=== PATIENT | female | born 1995 | race Caucasian/White ===

== ENCOUNTER 2018-06-03 14:36 | Inpatient (IN) | payer BC ==
[2018-06-03] MEDS ORDERED: Sodium Chloride 0.9% 10 ML Syringe FLUSH PRN (15:30)
[2018-06-03] MEDS ORDERED: Ondansetron 4 MG/2 ML SDV IVPUSH PRN (15:30)
[2018-06-03] MEDS ORDERED: Lactated Ringers 1,000 ML IV SCH (15:30)
[2018-06-03] MEDS ORDERED: Oxytocin/Lactated Ringers 10 UNIT/1,000 ML BAG IV SCH ×2 (15:30)
[2018-06-03] MEDS ORDERED: Lidocaine 1% 50 ML MDV INJECT ONE (15:30)
[2018-06-03] MEDS ORDERED: Nalbuphine 20 MG/ML 1 ML Syringe IVPUSH PRN (15:30)
--- NOTE | 2018-06-03 17:43 | PCM.HP ---
Addendum entered and electronically signed by Waldemar Thomas MD 06/06/18 05: 11: Addendum entered and electronically signed by Steffanie Puga 06/03/18 18:01 : Vancomycin used for GBS positive status due to anaphylactic-type allergy to penicillins and sulfa drugs. Original Note: H&P History of Present Illness - General Date of Service: 06/03/18 Admit Problem/Dx: Admission Diagnosis/Problem Admission Diagnosis/Problem Source of Information: Patient, Old Records History Limitations: Reports: No Limitations - History of Present Illness Initial Comments - Free Text/Narative: Brielle is a 22 YO white female who presented to L+D today following spontaneous rupture of membranes at 39-1/7 weeks gestational age (by LMP and confirmed by U/S 04/16/18). On presentation, patient complained of fluid leakage, and on exam patient was found to be dilated 4 cm, 85% effaced and at -3 station with cervix mid-position and soft. Patient is GBS positive, AB+ blood type, antibody screen negative. Patient is rubella immune, RPR/HBsAg were nonreactive. GC/Chlamydia negative. Tdap given 04/16/18. complicated due to late care. Patient states LMP was 09/02/17 , endorses alcohol use (1-2 drinks/week) until positive test, approx. 03/30/18, at an estimated 30 weeks gestation. Patient denies use of other drugs or tobacco during . - Related Data Allergies/Adverse Reactions: Allergies Allergy/AdvReac Type Severity Reaction Status Date / Time amoxicillin Allergy Anaphylactic Verified 06/03/18 15:28 Shock Penicillins Allergy Anaphylactic Verified 06/03/18 15:21 Shock Sulfa (Sulfonamide Allergy Rash Verified 06/03/18 15:21 Antibiotics) Home Medications: Home Meds Pnv No.122/Iron/Folic Acid [ Multi Tablet] 1 each PO DAILY 06/03/18 [ History] Past Medical History - Past Surgical History HEENT Surgical History: Reports: Tonsillectomy Social & Family History - Family History Cardiac: Reports: Hypertension (MGM MGF PGM PGF) Endocrine/Metabolic: Reports: Diabetes, type II (PGM MGF) - Alcohol Use Alcohol Use History: Yes Days Per Week of Alcohol Use: 1 Days Per Week of Alcohol Use Comment: "1-2 drinks per week until positive test, approximately mid- weeks gestation" per pt. record 04/16/18 Number of Drinks Per Day Comment: 2 Date of Last Drink: 03/30/18 Date/Time of Last Drink Comment: estimated H&P Review of Systems - Review of Systems: Review Of Systems: ROS reveals no pertinent complaints other than HPI. Exam - Exam Exam: See Below - Vital Signs Weight: 86.954 kg - Exam General: Alert, Oriented, 4 HEENT: Conjunctiva Clear, Hearing Intact, Mucosa Moist & Garey, Nares Patent, PERRLA Lungs: Clear to Auscultation, Normal Respiratory Effort Cardiovascular: Regular Rate, Regular Rhythm (Female) Exam: Normal External Exam, Normal Bimanual Exam Extremities: Normal Inspection, Normal Range of Motion, Non-Tender, No Pedal Edema, Normal Capillary Refill Skin: Warm, Dry, Intact Neuro Extensive - Mental Status: Alert, Oriented x3, Normal Mood/Affect, Normal Cognition Neuro Extensive - Motor, Sensory, Reflexes: Normal Gait Psychiatric: Alert, Normal Affect, Normal Mood - Patient Data Lab Results Last 24 hrs: Laboratory Results - last 24 hr 06/03/18 06/03/18 06/03/18 Range/Units 15:05 15:50 16:20 WBC 7.03 (3.98-10.04) K/mm3 RBC 4.52 (3.98-5.22) M/mm3 Hgb 12.5 (11.2-15.7) gm/L Hct 38.0 (34.1-44.9) % MCV 84.1 (79.4-94.8) fl MCH 27.7 (25.6-32.2) pg MCHC 32.9 (32.2-35.5) g/dl RDW Std Deviation 43.3 (36.4-46.3) fL Plt Count 198 (182-369) K/mm3 MPV 12.4 H (9.4-12.3) fl Neut % (Auto) 66.0 (34.0-71.1) % Lymph % (Auto) 26.2 (19.3-51.7) % [place] % (Auto) 7.3 (4.7-12.5) % Eos % (Auto) 0.4 L (0.7-5.8) Baso % (Auto) 0.1 (0.1-1.2) % Neut # (Auto) 4.64 (1.56-6.13) K/mm3 Lymph # (Auto) 1.84 (1.18-3.74) K/mm3 [place] # (Auto) 0.51 H (0.24-0.36) K/mm3 Eos # (Auto) 0.03 L (0.04-0.36) K/mm3 Baso # (Auto) 0.01 (0.01-0.08) K/mm3 Membrane Rupture Positive H Urine Opiates Screen Negative (NEGATIVE) Ur Buprenorphine Scrn Negative (NEGATIVE) Ur Oxycodone Screen Negative (NEGATIVE) Urine Methadone Screen Negative (NEGATIVE) Ur Propoxyphene Screen Negative (NEGATIVE) Ur Barbiturates Screen Negative (NEGATIVE) Ur Tricyclics Screen Negative (NEGATIVE) Ur Phencyclidine Scrn Negative (NEGATIVE) Ur Amphetamine Screen Negative (NEGATIVE) U Methamphetamines Scrn Negative (NEGATIVE) U Benzodiazepines Scrn Negative (NEGATIVE) U Cocaine Metab Screen Negative (NEGATIVE) U Marijuana (THC) Screen Negative (NEGATIVE) Result Diagrams: 06/03/18 15:50 - Problem List (1) Alcohol consumption during SNOMED Code(s): 204362106 ICD Code: O99.310 - ALCOHOL USE COMPLICATING , UNSPECIFIED TRIMESTER Status: Acute Current Visit: Yes (2) Late care SNOMED Code(s): 277497671 ICD Code: O09.30 - SUPRVSN OF PREG W INSUFFICIENT ANTENAT CARE, UNSP TRIMESTER Status: Acute Current Visit: Yes (3) 39 weeks gestation of SNOMED Code(s): 59408950 ICD Code: Z3A.39 - 39 WEEKS GESTATION OF Status: Acute Current Visit: Yes (4) Rupture of membranes with clear amniotic fluid SNOMED Code(s): 28092466, 165073220 ICD Code: [id number] - Status: Acute Current Visit: Yes Problem List Initiated/Reviewed/Updated: Yes Orders Last 24hrs: Active Orders 24 hr Category Date Time Status Patient Status [ADT] Routine ADT 06/03/18 15:30 Active Activity as Tolerated [RC] PFP Care 06/03/18 15:30 Active Antiembolic Devices [RC] .Routine Care 06/03/18 15:32 Active Communication Order [RC] ASDIRECTED Care 06/03/18 15:30 Active Heart Tones [RC] ASDIRECTED Care 06/03/18 15:31 Active Non Stress Test [RC] PER UNIT ROUTINE Care 06/03/18 15:30 Active Notify Provider [RC] PFP Care 06/03/18 15:30 Active Notify Provider [RC] PRN Care 06/03/18 15:30 Active Peripheral IV Care [RC] . DIRECTED Care 06/03/18 15:31 Active VTE/DVT Education [RC] PER UNIT ROUTINE Care 06/03/18 15:32 Active Vital Signs [RC] PER UNIT ROUTINE Care 06/03/18 15:30 Active Regular Diet [DIET] Diet 06/03/18 Lunch Active RAPID PLASMA REAGIN,RPR [CHEM] Routine Lab 06/03/18 15:50 Received Lactated Ringers [Ringers, Lactated] 1,000 ml Med 06/03/18 15:30 Active IV ASDIRECTED Nalbuphine [Nubain] Med 06/03/18 15:30 Active 10 mg IVPUSH Q2H PRN Ondansetron [Zofran] Med 06/03/18 15:30 Active 4 mg IVPUSH Q4H PRN Oxytocin/Lactated Ringers [Pitocin in LR 10 Units/1,000 Med 06/03/18 15:30 Active ML] 10 unit in 1,000 ml IV .CONTINUOUS Oxytocin/Lactated Ringers [Pitocin in LR 10 Units/1,000 Med 06/03/18 15:30 Active ML] 10 unit in 1,000 ml IV TITRATE Sodium Chloride 0.9% [Saline Flush] Med 06/03/18 15:30 Active 10 ml FLUSH ASDIRECTED PRN Vancomycin [Vancocin] 1 gm Med 06/03/18 15:30 Active Sodium Chloride 0.9% [Normal Saline] 250 ml IV Q12H DVT/VTE Prophylaxis Reflex [OM.PC] Routine Oth 06/03/18 15:31 Ordered Electronic Heart Tones Ext w TOCO [WOMSER] Oth 06/03/18 15:30 Ordered Routine Electronic Heart Tones Internal [WOMSER] Per Unit Oth 06/03/18 15:30 Ordered Routine Peripheral IV Insertion Adult [OM.PC] Routine Ot 06/03/18 15:30 Ordered Resuscitation Status Routine Resus Stat 06/03/18 15:30 Ordered Medication Orders Lactated Ringer's (Ringers, Lactated) 1,000 mls @ 100 mls/hr IV ASDIRECTED NICOLAS Last Admin: 06/03/18 16:24 Dose: 100 mls/hr Oxytocin/Lactated Ringer's (Pitocin In Lr 10 Units/1,000 Ml) 10 unit in 1,000 mls @ 12 mls/hr IV TITRATE NICOLAS; Protocol Last Titration: 06/03/18 17:16 Dose: 6 munits/min, 36 mls/hr Titration: 06/03/18 16:44 Dose: 4 munits/min, 24 mls/hr Admin: 06/03/18 16:24 Dose: 2 munits/min, 12 mls/hr Oxytocin/Lactated Ringer's (Pitocin In Lr 10 Units/1,000 Ml) 10 unit in 1,000 mls @ 500 mls/hr IV .CONTINUOUS NICOLAS Vancomycin HCl 1 gm/ Sodium (Chloride) 250 mls @ 250 mls/hr IV Q12H [facility] Last Admin: 06/03/18 16:23 Dose: 250 mls/hr Nalbuphine HCl (Nubain) 10 mg IVPUSH Q2H PRN PRN Reason: pain Ondansetron HCl (Zofran) 4 mg IVPUSH Q4H PRN PRN Reason: Nausea/Vomiting Sodium Chloride (Saline Flush) 10 ml FLUSH ASDIRECTED PRN PRN Reason: Keep Vein Open Assessment/Plan Comment:: ASSESSMENT History and exam findings consistent with spontaneous rupture of membranes at 39 -1/2 weeks gestation. Patient history concerning for alcohol use into the third trimester of , as well as late care. 1. 39-1/7 weeks gestation 2. Spontaneous rupture of membranes 3. GBS Positive mother PLAN 1. Augment labor with pitocin as needed 2. Plan for 3. Vancomycin for GBS positive status in mother 4. Provide education and support to mother and family as needed
[2018-06-03] MEDS ORDERED: Lidocaine 1% 50 ML MDV ONE (19:16)
--- NOTE | 2018-06-03 20:40 | PCM.SN ---
- Free Text/Narrative Note: Delivery note: Brielle is a 22-year-old 1 now para 1001 white female who was admitted on the afternoon of 06/03/2018 at 39-1/7 weeks gestational age with an TACHO of with spontaneous rupture of membranes. Rupture membranes at approximate 1400 hrs. resulting in clear amniotic fluid. She was evaluated in labor and delivery and found to be approximate 4 cm dilated. Amnisure was positive. As patient was not tiffanie significantly 2-3 hours post rupture of membranes Pitocin augmentation was started. She progressed rapidly and by approximately 1930 hrs. she became completely dilated. She delivered spontaneously in a right occiput anterior position. The baby was placed on mom's abdomen and the nose and mouth were bulb suctioned. The cord was clamped 2, cut and blood was obtained. Patient was noted to have a second-degree laceration with small extension onto the right labia majora. This area was infiltrated with lidocaine 1%10 mL total and repaired in a routine fashion with 3-0 Monocryl suture. The baby weighed 3060 g, (6 pounds 11.9 ounces) had Apgars of 9 and 9 and a length of 19.0 inches. The placenta delivered in a [place] fashion, appeared complete and intact and was discarded per patient desire. The umbilical cord had 3 vessels. Andrea to bottlefeed. Estimated blood loss 200 mL.
[2018-06-03] MEDS ORDERED: Lanolin 100% Cream 7 GM Tube TOP PRN (20:59)
[2018-06-03] MEDS ORDERED: Docusate Sodium 100 MG Cap PO PRN (20:59)
[2018-06-03] MEDS ORDERED: Ibuprofen 600 MG Tab PO PRN (20:59)
[2018-06-03] MEDS ORDERED: Acetaminophen 325 MG Tab PO PRN (20:59)
[2018-06-03] MEDS ORDERED: Benzocaine/Menthol 20%-0.5% Spray 56 GM Canister TOP PRN (20:59)
[2018-06-03] MEDS ORDERED: Witch Hazel Medicated Pads 100/Jar TOP PRN (20:59)
--- NOTE | 2018-06-04 08:48 | PCM.SN ---
- Free Text/Narrative Note: Brielle is a 22-year-old 1 now para 1001 white female who was admitted on the afternoon of 06/03/2018 at 39-1/7 weeks gestational age with an TACHO of with spontaneous rupture of membranes. Rupture membranes at approximate 1400 hrs. resulting in clear amniotic fluid. She was evaluated in labor and delivery and found to be approximate 4 cm dilated. Amnisure was positive. As patient was not tiffanie significantly 2-3 hours post rupture of membranes Pitocin augmentation was started. She progressed rapidly and by approximately 1930 hrs. she became completely dilated, and delivered at 20:00 hrs. Patient was noted to have a second-degree laceration with small extension onto the right labia majora. This area was repaired in a routine fashion with 3-0 Monocryl suture. SUBJECTIVE Patient appears well-developed, well-nourished in no acute distress. Denies depression/teariness, HAQ, blurred/double vision, N/V, chest pain, cough, SOB, dyspnea, LE edema/pain, excessive vaginal bleeding/discharge. Lungs were clear to auscultation, no M/R/G were appreciated. Trace LE was noted. Uterus is involuting normally, at 2 fingerbreadths below the umbilicus. No excessive tenderness to palpation was noted. OBJECTIVE Hgb: 9.6 g/L Hct: 29.4% VS T: 37.1 HR: 78 BP: 113/75 RR: 16 O2: 100% RA ASSESSMENT Patient appears in good condition with no obvious concerns at this time. H/H are within expected limits following . Patient is bottlefeeding without issue. PLAN 1. Continue to monitor patient 2. Plan to discharge home tomorrow 3. Encourage use of hospital education resources available to new parents 4. Support bottlefeeding decision
[2018-06-04] MEDS ORDERED: Prenatal Multivitamin with Calcium/Folic Acid/Iron Tab PO SCH (09:00)
--- NOTE | 2018-06-05 06:00 | PCM.DCSUM1 ---
Discharge Summary - Hospital Course Free Text/Narrative:: Brielle is a 22-year-old 1 now para 1001 white female who was admitted on the afternoon of 06/03/2018 at 39-1/7 weeks gestational age with an TACHO of with spontaneous rupture of membranes. Rupture membranes at approximate 1400 hrs. resulting in clear amniotic fluid. She was evaluated in labor and delivery and found to be approximate 4 cm dilated. Amnisure was positive. As patient was not tiffanie significantly 2-3 hours post rupture of membranes Pitocin augmentation was started. She progressed rapidly and by approximately 1930 hrs. she became completely dilated. She delivered spontaneously in a right occiput anterior position. The baby was placed on mom's abdomen and the nose and mouth were bulb suctioned. The cord was clamped 2, cut and blood was obtained. Patient was noted to have a second-degree laceration with small extension onto the right labia majora. This area was infiltrated with lidocaine 1%10 mL total and repaired in a routine fashion with 3-0 Monocryl suture. The baby weighed 3060 g, (6 pounds 11.9 ounces) had Apgars of 9 and 9 and a length of 19.0 inches. The placenta delivered in a [place] fashion, appeared complete and intact and was discarded per patient desire. The umbilical cord had 3 vessels. Andrea to bottlefeed. Estimated blood loss 200 mL. patient has done well. She is ambulating well, voiding without problems and has minimal lochia. She is desiring discharge home. She is bottle feeding. Diagnosis: Stroke: No - Discharge Data Discharge Date: 06/05/18 Discharge Disposition: Home, Self-Care 01 Condition: Good - Patient Instructions Diet: Regular Diet as Tolerated Activity: As Tolerated (No intercourse or tampons until bleeding resolves) Driving: May Drive Today Showering/Bathing: May Shower (May take a bath) Notify Provider of: Fever, Increased Pain, Swelling and Redness, Nausea and/or Vomiting - Discharge Plan *PRESCRIPTION DRUG MONITORING PROGRAM REVIEWED*: No *COPY OF PRESCRIPTION DRUG MONITORING REPORT IN PATIENT DANN: No Home Medications: Home Meds Pnv No.122/Iron/Folic Acid [ Multi Tablet] 1 each PO DAILY 06/03/18 [ History] Acetaminophen [Tylenol] 650 mg PO Q4H PRN tablet 06/05/18 [Rx] Ibuprofen [Motrin] 600 mg PO Q4H PRN tablet 06/05/18 [Rx] Curly Lopez [Tucks] 1 pad TOP ASDIRECTED PRN pad 06/05/18 [Rx] Referrals: Dhruv Hsieh MD [Physician] - (Return to clinic[facility]2 weeks.) - Discharge Summary/Plan Comment DC Time >30 min.: No Discharge Summary/Plan Comment: Discharge instructions: 1. Discharge home 2. Diet, activity and follow-up discussed with patient. Recommend nursing diet with increased calories and calcium. 3. Precautions given concern increased pain, bleeding, temperature, signs/ symptoms of DVT/PE. 4. Medications per home medication was printed, discussed with and given to the patient. 5. Return to clinic-Dr. Hsieh-[facility] in 2 weeks. Diagnosis: Term -delivered Condition: Good - Patient Data Vitals - Most Recent: Last Vital Signs Temp 36.8 C 06/05/18 03:08 Pulse 66 06/05/18 03:08 Resp 16 06/05/18 03:08 BP 112/61 06/05/18 03:08 Pulse Ox 100 06/05/18 03:08 Weight - Most Recent: 86.954 kg I&O - Last 24 hours: Intake & Output 06/04/18 06/04/18 06/05/18 14:59 22:59 06:59 Intake Total 120 Balance 120 Lab Results - Last 24 hrs: Laboratory Results - last 24 hr 06/04/18 Range/Units 05:50 WBC 11.02 H (3.98-10.04) K/mm3 RBC 3.46 L (3.98-5.22) M/mm3 Hgb 9.6 L (11.2-15.7) gm/L Hct 29.4 L (34.1-44.9) % MCV 85.0 (79.4-94.8) fl MCH 27.7 (25.6-32.2) pg MCHC 32.7 (32.2-35.5) g/dl RDW Std Deviation 43.1 (36.4-46.3) fL Plt Count 185 (182-369) K/mm3 MPV 12.1 (9.4-12.3) fl Med Orders - Current: Current Medications Acetaminophen (Tylenol) 650 mg PO Q4H PRN PRN Reason: mild pain or fever Benzocaine/Menthol (Dermoplast Pain Relief [place]) 0 gm TOP ASDIRECTED PRN PRN Reason: Perineal Comfort Measure Last Admin: 06/03/18 21:59 Dose: 1 can Docusate Sodium (Colace) 100 mg PO BID PRN PRN Reason: Constipation Emollient Ointment (Lansinoh Hpa) 0 gm TOP ASDIRECTED PRN PRN Reason: Sore Nipples Ibuprofen (Motrin) 600 mg PO Q4H PRN PRN Reason: Mild pain or fever Prenat Multivit/[place]/Iron/Folic Ac ( Plus Iron) 1 each PO DAILY NICOLAS Last Admin: 06/04/18 09:33 Dose: 1 each Witch Jessica (Tucks) 1 pad TOP ASDIRECTED PRN PRN Reason: Hemorrhoid pain Last Admin: 06/03/18 21:59 Dose: 1 jar Discontinued Medications Lactated Ringer's (Ringers, Lactated) 1,000 mls @ 100 mls/hr IV ASDIRECTED NICOLAS Last Admin: 06/03/18 16:24 Dose: 100 mls/hr Oxytocin/Lactated Ringer's (Pitocin In Lr 10 Units/1,000 Ml) 10 unit in 1,000 mls @ 12 mls/hr IV TITRATE NICOLAS; Protocol Last Titration: 06/03/18 20:10 Dose: 500 mls/hr Oxytocin/Lactated Ringer's (Pitocin In Lr 10 Units/1,000 Ml) 10 unit in 1,000 mls @ 500 mls/hr IV .CONTINUOUS NICOLAS Vancomycin HCl 1 gm/ Sodium (Chloride) 250 mls @ 250 mls/hr IV Q12H NICOLAS Last Admin: 06/03/18 16:23 Dose: 250 mls/hr Lidocaine HCl (Xylocaine 1%) 20 ml INJECT ONETIME ONE Stop: 06/03/18 15:31 Last Admin: 06/03/18 20:13 Dose: 50 ml Lidocaine HCl (Xylocaine 1%) Confirm Administered Dose 50 ml .ROUTE .STK-MED ONE Stop: 06/03/18 19:17 Last Admin: 06/03/18 19:49 Dose: Not Given Nalbuphine HCl (Nubain) 10 mg IVPUSH Q2H PRN PRN Reason: pain Last Admin: 06/03/18 18:39 Dose: 5 mg Ondansetron HCl (Zofran) 4 mg IVPUSH Q4H PRN PRN Reason: Nausea/Vomiting Sodium Chloride (Saline Flush) 10 ml FLUSH ASDIRECTED PRN PRN Reason: Keep Vein Open
== END 2018-06-05 11:55 | disposition home or self-care (01) | DRG 560 ==
LOC: JD.OBCHECK 14:36 → JD.OB 14:39 → JD.OBCHECK 15:30 → JD.OB 20:00 → OBSVTOIN 20:00
PROVIDERS: ADMIT Obstetrics & Gynecology; ATTEND Obstetrics & Gynecology
PROC: 0UQMXZZ Repair Vulva, External Approach (ICD-10-PCS; principal; 2018-06-03)
PROC: 0KQM0ZZ Repair Perineum Muscle, Open Approach (ICD-10-PCS; principal; 2018-06-03)
PROC: 10E0XZZ Delivery of Products of Conception, External Approach (ICD-10-PCS; principal; 2018-06-03)
PROC: 6A550ZT Pheresis of Cord Blood Stem Cells, Single (ICD-10-PCS; principal; 2018-06-03)
DX: O99.314 Alcohol use complicating childbirth (principal); Z3A.39 39 weeks gestation of pregnancy; Z37.0 Single live birth; O99.824 Streptococcus B carrier state complicating childbirth; O70.1 Second degree perineal laceration during delivery; Z88.1 Allergy status to other antibiotic agents; Z88.0 Allergy status to penicillin; Z88.2 Allergy status to sulfonamides; Z72.89 Other problems related to lifestyle
CPT/HCPCS: 36415; 59025; 59300; 59409; 80306; 84112; 85025; 85027; 86592; A9270-GY; J2300; J2590; J3370; J7050; J7120

== ENCOUNTER 2024-05-10 19:43 | Emergency (ER) | payer BC ==
[2024-05-10] MEDS ORDERED: Naloxone 0.4 MG/ML SDV IVPUSH PRN (22:03)
[2024-05-10 22:27] LABS: BASOPHILS PERCENT AUTO 0.4 % (0.0-1.0); EOSINOPHILS PERCENT AUTO 0.1 % (0.0-6.0); HEMATOCRIT 38.6 % (37.0-47.0); HEMOGLOBIN 12.9 gm/dl (12.0-16.0); IMMATURE GRAN ABSOLUTE AUTO 0.02 K/mm3 (0.00-0.05); IMMATURE GRAN PERCENT AUTO 0.3 % (0.0-0.4); LYMPHOCYTES ABSOLUTE AUTO 1.1 K/mm3 (1.0-4.8); LYMPHOCYTES PERCENT AUTO 14.3 % (24.0-44.0); MEAN CORPUSCULAR HEMOGLOBIN 28.3 pg (28.0-32.0); MEAN CORPUSCULAR HGB CONC 33.4 g/dl (32.0-36.0); MEAN CORPUSCULAR VOLUME 84.6 fl (83.0-99.0); MEAN PLATELET VOLUME 11.1 fl (9.4-12.3); MONOCYTES ABSOLUTE AUTO 0.4 K/mm3 (0.0-0.8); MONOCYTES PERCENT AUTO 4.5 % (0.0-8.0); NEUTROPHILS ABSOLUTE AUTO 6.4 K/mm3 (1.8-7.7); NEUTROPHILS PERCENT AUTO 80.4 % (41.0-71.0); PLATELET COUNT,PLT 191 K/mm3 (150-400); RED BLOOD CELL COUNT 4.56 M/mm3 (4.10-5.30); WHITE BLOOD CELL COUNT,WBC 7.92 K/mm3 (3.9-11.3)
[2024-05-10 22:47] LABS: INR 1.08; PROTHROMBIN TIME 11.4 SECONDS (9.7-12.0)
[2024-05-10 22:48] LABS: PTT,PARTIAL THROMBOPLSTIN TIME 26.2 SECONDS (21.7-31.4)
[2024-05-10 22:51] LABS: A/G RATIO 1.3 (1-2); ALANINE AMINOTRANSFERASE,ALT 54 U/L (14-59); ALKALINE PHOSPHATASE 65 U/L (46-116); ANION GAP 12.8 (5-15); ASPARTATE AMNIOTRANSFERASE,AST 69 U/L (15-37); BILIRUBIN TOTAL 0.9 mg/dL (0.2-1.0); BLOOD UREA NITROGEN,BUN 10 mg/dL (7-18); BUN/CREATININE RATIO 14.3 (14-18); CALCIUM 9.3 mg/dL (8.5-10.1); CARBON DIOXIDE,CO2 27 mEq/L (21-32); CHLORIDE,CL 105 mEq/L (98-107); CREATINE KINASE,CK 39 U/L (26-192); CREATININE 0.7 mg/dL (0.55-1.02); EST CRCL DRUG DOSING (CG) 116.35 mL/min; ESTIMATED GFR 121 mL/min (>60); GLUCOSE RANDOM 96 mg/dL (70-99); LACTIC ACID 0.5 mmol/L (0.4-2.0); LIPASE 34 U/L (16-77); POTASSIUM,K 3.8 mEq/L (3.5-5.1); PROTEIN TOTAL,TP 7.1 g/dl (6.4-8.2); SODIUM,NA 141 mEq/L (136-145)
[2024-05-10 22:56] LABS: TROPONIN I HIGH SENSITIVITY < 4 pg/mL (<=51)
[2024-05-10] MEDS: Morphine 2 MG/ML SYRINGE IVPUSH ONE (23:03)
[2024-05-10] MEDS: Ondansetron 4 MG/2 ML SDV IVPUSH ONE (23:03)
[2024-05-10] MEDS: Iopamidol 755 Mg/ML 100 ML Bottle IVPUSH ONE (23:03)
[2024-05-10] MEDS: Sodium Chloride 0.9% 10 ML Syringe FLUSH PRN (23:04)
[2024-05-10] MEDS: Sodium Chloride 0.9% 10 ML Syringe FLUSH ONE (23:07)
== END 2024-05-11 00:58 | disposition home or self-care (01) ==
LOC: JD.ED 19:43
DX: N83.11 Corpus luteum cyst of right ovary (principal); Z88.0 Allergy status to penicillin; Z88.2 Allergy status to sulfonamides
CPT/HCPCS: 36415; 71046; 74177; 80053; 82550; 83605; 83690; 84484; 84703; 85025; 85610; 85730; 86140; 96374; 96375; 99284; J2270; J2405; J3490; Q9967

== ENCOUNTER 2024-05-17 17:49 | Emergency (ER) | payer BC ==
[2024-05-17] MEDS: Sodium Chloride 0.9% 10 ML Syringe FLUSH PRN (23:32)
[2024-05-17 23:38] LABS: BASOPHILS PERCENT AUTO 0.5 % (0.0-1.0); EOSINOPHILS PERCENT AUTO 0.2 % (0.0-6.0); HEMATOCRIT 43.1 % (37.0-47.0); HEMOGLOBIN 14.3 gm/dl (12.0-16.0); IMMATURE GRAN ABSOLUTE AUTO 0.01 K/mm3 (0.00-0.05); IMMATURE GRAN PERCENT AUTO 0.2 % (0.0-0.4); LYMPHOCYTES ABSOLUTE AUTO 2.1 K/mm3 (1.0-4.8); LYMPHOCYTES PERCENT AUTO 33.3 % (24.0-44.0); MEAN CORPUSCULAR HGB CONC 33.2 g/dl (32.0-36.0); MEAN CORPUSCULAR VOLUME 84.5 fl (83.0-99.0); MEAN PLATELET VOLUME 11.1 fl (9.4-12.3); MONOCYTES ABSOLUTE AUTO 0.4 K/mm3 (0.0-0.8); MONOCYTES PERCENT AUTO 6.8 % (0.0-8.0); NEUTROPHILS ABSOLUTE AUTO 3.6 K/mm3 (1.8-7.7); PLATELET COUNT,PLT 221 K/mm3 (150-400); WHITE BLOOD CELL COUNT,WBC 6.16 K/mm3 (3.9-11.3)
[2024-05-17 23:39] LABS: APPEARANCE,URINE CLEAR (Clear); BILIRUBIN,URINE 2+ (Negative); COLOR,URINE AMBER (Yellow); GLUCOSE,URINE NEGATIVE (Negative); KETONES,URINE 1+ (Negative); LEUKOCYTE ESTERASE,URINE TRACE (Negative); NITRITE,URINE NEGATIVE (Negative); OCCULT BLOOD,URINE NEGATIVE (Negative); PROTEIN,URINE 2+ (Negative); UROBILINOGEN,URINE >=8.0 (0.2-1.0)
[2024-05-17] MEDS: Alum Hydrox/Mag Hydrox/Simeth 30 ML, Lidocaine 2% 15 ML PO ONE (23:40)
[2024-05-17 23:46] LABS: BACTERIA,URINE MANY /hpf (FEW); MUCUS,URINE MANY /hpf (FEW); RBC,URINE 0-5 /hpf (0-5)
[2024-05-17 23:59] LABS: A/G RATIO 1.2 (1-2); ALBUMIN 4.2 g/dl (3.4-5.0); ANION GAP 13.8 (5-15); BILIRUBIN TOTAL 1.5 mg/dL (0.2-1.0); BUN/CREATININE RATIO 11.1 (14-18); C-REACTIVE PROTEIN 0.88 mg/dL (<0.30); CALCIUM 9.4 mg/dL (8.5-10.1); CREATININE 0.9 mg/dL (0.55-1.02); EST CRCL DRUG DOSING (CG) 93.88 mL/min; MAGNESIUM 1.8 mg/dL (1.8-2.4); POTASSIUM,K 3.8 mEq/L (3.5-5.1); PROTEIN TOTAL,TP 7.8 g/dl (6.4-8.2)
[2024-05-18] MEDS: Nitrofurantoin Monohydrate/Macrocrystalline 100 MG Cap PO ONE (01:12)
[2024-05-18] MEDS: Sucralfate Suspension 1 GM/10 ML Cup PO ONE (01:12)
[2024-05-18] MEDS: Pantoprazole 40 MG Vial IVPUSH ONE (01:53)
== END 2024-05-18 02:27 | disposition home or self-care (01) ==
LOC: JD.ED 17:49
DX: K29.00 Acute gastritis without bleeding (principal); Z88.0 Allergy status to penicillin; Z79.899 Other long term (current) drug therapy
CPT/HCPCS: 36415; 80053; 81001; 83735; 85025; 86140; 87086; 96374; 99284; A9270; J2470; J3490

== ENCOUNTER 2024-06-22 22:23 | Emergency (ER) | payer BC ==
[2024-06-23 00:51] LABS: APPEARANCE,URINE CLEAR (Clear); BILIRUBIN,URINE NEGATIVE (Negative); COLOR,URINE YELLOW (Yellow); GLUCOSE,URINE NEGATIVE (Negative); KETONES,URINE NEGATIVE (Negative); LEUKOCYTE ESTERASE,URINE TRACE (Negative); NITRITE,URINE NEGATIVE (Negative); OCCULT BLOOD,URINE NEGATIVE (Negative); PH,URINE 6.5 (5.0-8.0); PROTEIN,URINE NEGATIVE (Negative); UROBILINOGEN,URINE 0.2 (0.2-1.0)
[2024-06-23 01:05] LABS: EPITHELIAL CELLS,URINE 0-5 /hpf (0-5); RBC,URINE NOT SEEN /hpf (0-5)
[2024-06-23 01:06] LABS: BACTERIA,URINE FEW /hpf (FEW); MUCUS,URINE RARE /hpf (FEW)
[2024-06-23 01:10] LABS: BASOPHILS PERCENT AUTO 0.2 % (0.0-1.0); EOSINOPHILS PERCENT AUTO 0.7 % (0.0-6.0); HEMATOCRIT 38.5 % (37.0-47.0); HEMOGLOBIN 12.4 gm/dl (12.0-16.0); LYMPHOCYTES ABSOLUTE AUTO 1.4 K/mm3 (1.0-4.8); MEAN CORPUSCULAR HEMOGLOBIN 27.7 pg (28.0-32.0); MEAN CORPUSCULAR HGB CONC 32.2 g/dl (32.0-36.0); MEAN CORPUSCULAR VOLUME 85.9 fl (83.0-99.0); MEAN PLATELET VOLUME 11.5 fl (9.4-12.3); MONOCYTES ABSOLUTE AUTO 0.4 K/mm3 (0.0-0.8); MONOCYTES PERCENT AUTO 8.1 % (0.0-8.0); NEUTROPHILS ABSOLUTE AUTO 2.5 K/mm3 (1.8-7.7); PLATELET COUNT,PLT 180 K/mm3 (150-400); RED BLOOD CELL COUNT 4.48 M/mm3 (4.10-5.30); WHITE BLOOD CELL COUNT,WBC 4.33 K/mm3 (3.9-11.3)
[2024-06-23] MEDS ORDERED: Dextrose 5%-0.9% NaCl 1,000 ML IV SCH (01:15)
[2024-06-23 01:31] LABS: A/G RATIO 1.1 (1-2); ALBUMIN 3.4 g/dl (3.4-5.0); BILIRUBIN TOTAL 0.5 mg/dL (0.2-1.0); C-REACTIVE PROTEIN 1.19 mg/dL (<0.30); CALCIUM 8.6 mg/dL (8.5-10.1); CREATININE 0.7 mg/dL (0.55-1.02); EST CRCL DRUG DOSING (CG) 114.18 mL/min; PROTEIN TOTAL,TP 6.6 g/dl (6.4-8.2)
[2024-06-23] MEDS: Hyoscyamine 0.125 MG Tab.SL SL ONE ×3 (01:41→01:50)
[2024-06-23] MEDS: Hyoscyamine 0.125 MG Tab.SL ONE (01:50)
[2024-06-23] MEDS: Iopamidol 612 MG/ML 100 ML Bottle IVPUSH ONE (03:17)
[2024-06-23] MEDS: HYDROmorphone 0.5 MG/0.5 ML Syringe IVPUSH ONE (04:04)
[2024-06-23] MEDS: Metoclopramide 10 MG/2 ML SDV IVPUSH ONE (04:04)
== END 2024-06-23 04:13 | disposition home or self-care (01) ==
LOC: JD.ED 22:23
DX: K59.01 Slow transit constipation (principal); R10.11 Right upper quadrant pain; Z79.899 Other long term (current) drug therapy; Z88.0 Allergy status to penicillin; Z88.2 Allergy status to sulfonamides
CPT/HCPCS: 36415; 74018; 74177; 80053; 81001; 82977; 83690; 84703; 85025; 86140; 99284; A9270; Q9967